=== PATIENT | male | born 1965 | race Two or more races ===

== ENCOUNTER → 2024-12-15 | Outpatient (CLI) | payer MEDICAID, SELFPAY ==
--- NOTE | 2024-12-15 16:04 | XR_ITS ---
Examination: Wrist, right 3 views Technique: Wrist AP, oblique, lateral 3 views Date and time of exam: December 15, 2024 1610 hours INDICATIONS: Wrist fracture 2 months ago FINDINGS: Significant healing impacted comminuted intra-articular fracture distal radial metaphysis Severe osteopenia Carpal bones appear intact IMPRESSION: Significant partial healing impacted comminuted intra-articular fracture distal radial metaphysis
--- NOTE | 2024-12-15 16:04 | XR_ITS ---
Examination: Hand, right 3 views Technique: Hand AP, oblique, lateral 3 views Date and time of exam: December 15, 2024 1610 hours INDICATION: Patient fell 2 months ago with wrist fracture FINDINGS: Significant healing impacted fracture distal radial metaphysis I do not have prior films to compare alignment Carpal bones intact Severe osteopenia IMPRESSION: Significant partial healing impacted comminuted intra-articular fracture distal radial metaphysis
== END | disposition home or self-care (01) ==
PROVIDERS: PCP Nurse Practitioner Primary Care
DX: S52.91XA Unspecified fracture of right forearm, initial encounter for closed fracture (principal); W19.XXXA Unspecified fall, initial encounter
CPT/HCPCS: 73110; 73130

== ENCOUNTER → 2025-02-14 | Outpatient (CLI) | payer MEDICAID, SELFPAY ==
--- NOTE | 2025-02-14 15:01 | XR_ITS ---
Examination: Wrist, right 3 views Technique: Wrist AP, oblique, lateral 3 views Date and time of exam: February 14, 2025 1533 hours, comparison December 15, 2024 INDICATIONS: History wrist fracture postop reduction internal fixation FINDINGS: Postop reduction internal fixation fracture distal radial metaphysis with significant partial healing Stable and satisfactory alignment Orthopedic hardware satisfactory position IMPRESSION: Postop reduction internal fixation fracture distal radial metaphysis with significant partial healing, stable and satisfactory alignment
== END | disposition home or self-care (01) ==
LOC: CDIM 14:56
PROVIDERS: PCP Nurse Practitioner Primary Care; Referring Provider Nurse Practitioner Gerontology; Visit Provider Nurse Practitioner Gerontology
DX: S52.91XA Unspecified fracture of right forearm, initial encounter for closed fracture (principal); X58.XXXA Exposure to other specified factors, initial encounter
CPT/HCPCS: 73110

== ENCOUNTER 2025-06-04 14:00 | Outpatient (RCR) | payer MEDICAID, SELFPAY ==
--- NOTE | 2025-05-28 13:46 | PT.OIERPT ---
PT OP Initial Eval Patient Information Outpatient Physical Therapy Treatment Date: 05/28/25 Visit Reasons: CARPAL TUNNEL RT WRIST Medical Diagnosis: G56.01 Treatment Dx #1: R wrist pain Treatment Dx #2: R stamping machine operator weakness Start of Care: 05/28/25 Date of Onset: 01/25/25 DOS Smoking Status Smoking Status: Never smoker Initial Assessment Subjective: Pt is 59 thai speaking male s/p R osteotomy and ORIF with CTS in January presents to therapy with c/o R hand weakness with gripping. He is not working due to this and reports limitations with gripping, lifting, moving objects, opening bottles. PMH: none reported Pt goal: improved stamping machine operator strength to work with the hand and lift things Objective: Michele stamping machine operator strength L: 81 lbs, R: 25 lbs R wrist AROM: Flexion: 25 deg Extension: neutral, 0 deg Fist AROM: 75% of normal Incision scar: healed Sensation: intact of palmar hand and wrist Assessment: Pt presents with decreased R wrist and hand ROM with stamping machine operator strength weakness consistent with referring Dx. Pt requires skilled therapy and has fair rehab potential to meet goals potentially limited by chronicity since sx. [employer] Term and [employer] Goals 1. Ind with HEP 2. Improved stamping machine operator strength on R to 40 lbs 3. Improved R wrist AROM to 35 deg flexion and extension 4. Pt will make full fist to grasp objects Treatment Plan 1. Manual therapy ? 2. Therex ? 3. Modalities as indicated, moist heat, ice, TENS Frequency and Duration: 2x a week for 12 visits plus the evaluation Certification Dates: 05/28/25 to 08/26/25 Procedure Charges OP PT Eval Mod Complex 30 minutes: Yes
--- NOTE | 2025-06-04 14:23 | PT.ODAYNRPT ---
PT Outpatient Daily Note OP Daily Note Outpatient Physical Therapy Treatment Date: 06/04/25 Visit Reasons: CARPAL TUNNEL RT WRIST Subjective: Same as time of evaluation. Doing HEP Objective: See F/S for therex MT: PROM into wrist flexion and extension and digit flexion x7' Assessment: Myofascial tightness limits wrist and digit AROM but improved fist ROM since the evaluation. Plan: Continue per POC Length of Time (minutes) of Treatment: 30 Minutes Procedure Charges Therapeutic Exercise 30 minutes: Yes
== END 2025-06-10 23:59 | disposition home or self-care (01) ==
LOC: CPTX 14:00
DX: M25.531 Pain in right wrist (principal); R53.1 Weakness; Z98.890 Other specified postprocedural states
CPT/HCPCS: 97110; 97162

== ENCOUNTER 2025-06-12 14:49 | Outpatient (RCR) | payer MEDICAID, SELFPAY ==
--- NOTE | 2025-06-12 17:39 | PT.ODAYNRPT ---
PT Outpatient Daily Note OP Daily Note Outpatient Physical Therapy Treatment Date: 06/12/25 Visit Reasons: carpal tunnel rt wrist Subjective: Same as time of evaluation. Doing HEP Objective: See F/S for therex MT: PROM into wrist flexion and extension and digit flexion x7' Assessment: Myofascial tightness limits wrist and digit AROM but improved fist ROM since the evaluation to almost touch palm to digits Plan: Continue per POC Length of Time (minutes) of Treatment: 30 Minutes Procedure Charges Therapeutic Exercise 30 minutes: Yes
== END 2025-07-11 23:59 | disposition home or self-care (01) ==
LOC: CPTX 14:49
DX: M25.531 Pain in right wrist (principal); R53.1 Weakness; G56.01 Carpal tunnel syndrome, right upper limb
CPT/HCPCS: 97110